=== PATIENT | male | born 1980 | race Caucasian/White ===

== ENCOUNTER 2019-02-01 11:45 | Emergency (ER) | payer OTHER ==
[2019-02-01 12:04] VITALS: BP 151/78
--- NOTE | 2019-02-01 12:44 | UC ---
Knee Pain HPI - HPI Summary HPI Summary: 38-year-old male comes in with chief complaint of left knee pain. Several months ago while exercising patient started having left knee pain. Pain is primarily worse when he does squatting. It's better when he avoids squatting. Today at work he was going under a low area and he had to squat and go sideways and he had increased pain in the left knee. He is able to ambulate but that does make the pain worse. Taking the weight off of it decreases the pain. He does hear clicking every once in a while. No locking. - History of Current Complaint Chief Complaint: UCLowerExtremity Stated Complaint: LT KNEE INJURY Time Seen by Provider: 02/01/19 11:57 Pain Intensity: 5 - Allergies/Home Medications Allergies/Adverse Reactions: Allergies Allergy/AdvReac Type Severity Reaction Status Date / Time No Known Allergies Allergy Verified 02/01/19 12:04 Home Medications: Home Medications Citalopram TAB* [Celexa TAB*] 1 mg PO DAILY 02/01/19 [History Confirmed 02/01/19 ] PMH/Surg Hx/FS Hx/Imm Hx Previously Healthy: Yes - Surgical History Surgical History: Yes Surgery Procedure, Year, and Place: rt knee 2o12 - Family History Known Family History: Positive: Non-Contributory - Social History Alcohol Use: None Substance Use Type: None Smoking Status (MU): Never Smoked Tobacco Review of Systems All Other Systems Reviewed And Are Negative: Yes Constitutional: Positive: Negative Skin: Positive: Negative Eyes: Positive: Negative ENT: Positive: Negative Respiratory: Positive: Negative Cardiovascular: Positive: Negative Gastrointestinal: Positive: Negative Motor: Positive: Negative Neurovascular: Positive: Negative Musculoskeletal: Positive: Other: - SEE HPI Neurological: Positive: Negative Psychological: Positive: Negative Is Patient Immunocompromised?: No Physical Exam Triage Information Reviewed: Yes Appearance: Well-Appearing, No Pain Distress, Well-Nourished Vital Signs: Initial Vital Signs Temp 98 F 02/01/19 12:02 Pulse 88 02/01/19 12:02 Resp 16 02/01/19 12:02 BP 151/78 02/01/19 12:02 Pulse Ox 99 02/01/19 12:02 Vital Signs Reviewed: Yes Eye Exam: Normal Eyes: Positive: Conjunctiva Clear Neck: Positive: Supple Respiratory: Positive: No respiratory distress Musculoskeletal: Positive: Other: - Left knee is tender to palpation on the medial anterior aspect. Negative Nishi's. Stable to exam. No effusion. Full range of motion. Neurological: Positive: Alert, Muscle Tone Normal Psychological: Positive: Age Appropriate Behavior Skin Exam: Normal Knee Pain Course/Dx - Course Course Of Treatment: Patient Name: VIKASH DAVIS Medical Record#: [id number] Ordering Physician: Micheal Warner MD Acct.#: [id number] : 1980 Age: 38 Sex: M Location: [facility] Exam Date: 02/01/19 1156 ADM Status: REG ER Order Information: KNEE LEFT 4+ VWS Accession Number: [id number] CPT: 29120 INDICATION: Left knee pain. TECHNIQUE: 4 views of the left knee were obtained. FINDINGS: The bones are in normal alignment. No joint effusion or fracture is seen. Joint spaces appear maintained. IMPRESSION: NO EVIDENCE FOR FRACTURE. <Electronically signed by Schuyler Huitron MD in OV> 02/01/19 1238 I discussed the x-ray results with the patient. By history I'm wondering if he is injured meniscus. However he does not have an effusion today. Plan is ice anti-inflammatories elevation and follow-up with sports medicine. - Differential Dx/Diagnosis Provider Diagnosis: Left knee pain Discharge - Sign-Out/Discharge Documenting (check all that apply): Patient Departure All imaging exams completed and their final reports reviewed: Yes - Discharge Plan Condition: Stable Disposition: HOME Patient Education Materials: Knee Pain (ED) Referrals: Jeanette Worley PA [Primary Care Provider] - [facility] [Provider Group] Additional Instructions: FOLLOW UP WITH SPORTS MEDICINE. GET RECHECKED SOONER IF YOUR CONDITION WORSENS OR ANY QUESTIONS OR CONCERNS. - Billing Disposition and Condition Condition: STABLE Disposition: Home
== END 2019-02-01 12:47 | disposition home or self-care (01) ==
LOC: UCEAST 11:45
DX: M25.562 Pain in left knee (principal)
CPT/HCPCS: 99211; G0463